=== PATIENT | male | born 1950 | race Caucasian/White ===

== ENCOUNTER → 2016-10-07 | Outpatient (CLI) | payer MEDICARE, OTHER ==
[2016-10-07 10:08] LABS: CHOLESTEROL 128.33 mg/dL (0-200); Direct HDL 37 mg/dL (>40); TRIGLYCERIDES 172 mg/dL (<150)
[2016-10-07 10:19] LABS: DIRECT LDL 75 mg/dL (<100)
[2016-10-07 10:26] LABS: VLDL CHOLESTEROL 34.4 mg/dL (10-31)
== END ==
LOC: OD 08:54
PROVIDERS: ATTEND Internal Medicine
DX: E78.5 Hyperlipidemia, unspecified (principal)
CPT/HCPCS: 36415; 80061